=== PATIENT | male | born 1945 | race Caucasian/White ===

== ENCOUNTER 2016-09-14 05:51 | Day surgery (SDC) | payer MEDICARE, OTHER ==
[~2016-09-14] VITALS: Ht 172.7 cm; Wt 77.2 kg
[2016-09-14] VITALS (47 sets, daily range): BP systolic 118–174; BP diastolic 54–81; PULSE 60–88; RESP 11–29; Ht 172.7 cm; Wt 77.2 kg
[~2016-09-14 05:51] MED LIST: ASPI-664; CARV3.1238; CLOP75TA19; LEVO500T72; LISI-523; SMV40T; TAMS-14
[2016-09-14] MEDS ORDERED: IODIXANOL LOCM 100 ML BTL ONE ×2 (06:58→08:11)
[2016-09-14] MEDS ORDERED: LISI10TA2 PO (06:59)
[2016-09-14] MEDS ORDERED: ATEN-51 PO (06:59)
[2016-09-14] MEDS ORDERED: ATOR80TA75 PO (06:59)
[2016-09-14] MEDS ORDERED: IBUP800T25 PO (06:59)
[2016-09-14] MEDS ORDERED: LIDOCAINE 1% (MDV) 20 ML INJ ONE (06:59)
[2016-09-14] MEDS ORDERED: FENTAnyl 50 MCG/ML VIAL ONE ×2 (06:59→08:45)
[2016-09-14] MEDS ORDERED: SOD CHLORIDE 0.9% 500 ML ONE (06:59)
[2016-09-14] MEDS ORDERED: MIDAZOLAM 1 MG/ML 2 ML INJ ONE ×2 (06:59→08:31)
[2016-09-14] MEDS ORDERED: LORA1TAB PO (07:00)
[2016-09-14] MEDS ORDERED: NIT4 SL (07:00)
[2016-09-14] MEDS ORDERED: ZOLP5TAB6 PO (07:00)
[2016-09-14] MEDS ORDERED: NACL 0.9% 3 ML SYG IV SCH ×2 (07:00→14:00)
[2016-09-14] MEDS ORDERED: VERAPAMIL 5 MG INJ ONE (07:00)
[2016-09-14] MEDS ORDERED: NITROGLYCERIN (IC) 100 MCG/ML INJ ONE (07:00)
[2016-09-14] MEDS ORDERED: HEPARIN 1000 UNITS/ML 10 ML INJ ONE (07:00)
[2016-09-14] MEDS ORDERED: TAMS0.4C2 PO (07:00)
[2016-09-14] MEDS ORDERED: ASPIRIN 325 MG TAB ONE (08:28)
[2016-09-14] MEDS ORDERED: CLOPIDOGREL 300 MG TAB ONE (08:28)
[2016-09-14] MEDS ORDERED: hydrALAzine 20 MG INJ ONE (08:49)
[2016-09-14] MEDS ORDERED: SOD CHLORIDE 0.9% 500 ML IV SCH (09:01)
--- NOTE | 2016-09-14 11:13 | OPR ---
DATE OF OPERATION: 09/14/2016 PROCEDURES PERFORMED: 1. Left heart catheterization. 2. ____ balloon angioplasty alone of the mid LAD. PREOPERATIVE DIAGNOSES: 1. Coronary artery disease, status post PCI. 2. History of in-stent restenosis. 3. Previous myocardial infarction. 4. Abnormal cardiac stress test. 5. Cigarette smoker. POSTOPERATIVE DIAGNOSES: 1. Coronary artery disease with recurrent in-stent restenosis of mid LAD stent. 2. Status post successful balloon angioplasty alone of mid LAD stent. SANDBLAST OPERATOR: Tha Murray MD PRIMARY DOORSHAKER: Eugene Campbell MD REFERRING PHYSICIAN: Dr. Nazario HISTORY: Mr. Coello is a pleasant 69-year-old man with a history of previous anterior wall myocar dial infarction, status post percutaneous coronary intervention to the mid LAD in 2007. The patient returned in 2009 with in-stent restenosis of the mid LAD stent status post overlapping stent placem ent with drug-eluting stent. Patient had done well; however, has been followed by Dr. Eugene portillo and some recent stress test showed anterior wall hypokinesis with stress. The patient also with c ontinued smoking; treatment high risk for in-stent restenosis. Decision was made to bring the alexsandra ent to the catheterization lab for further evaluation. The patient was aware of all risks, benefits prior to the procedure. PROCEDURE DESCRIPTION: After informed consent was obtained, right wrist and groin were prepped in u sual sterile fashion and anesthetized with 1% lidocaine solution. Right radial access was obtained using ultrasound guidance and a TIG 4.0 catheter was advanced to the ascending aorta. However, a wi re would not pass the innominate artery and a selective right subclavian angiogram was obtained show ing occlusion of the right subclavian artery after completion just prior to origin of the vertebral and [place] arteries. Decision was made to proceed with femoral access for procedure. TIG catheter an d wires were removed. Right groin was then anesthetized with 1% lidocaine solution and a 6-Lao s allyn was placed using modified Seldinger technique. The right femoral angiogram was obtained showi ng correct sheath placement in the mid right common femoral artery Standard angiograms were then obt ained using JL4 and JR4 catheters to engage the left and right coronary arteries respectively. The JR4 catheter was removed and exchanged for a 6-Lao Joe right catheter, given inability to ca nnulate the right coronary. Standard angiograms were obtained of the right coronary. ____ was then exchanged for a pigtail catheter, was advanced to the left ventricle without difficulty and pressur es were obtained. Discussion was held with patient as well as referring physician. Decision was laurita de leon to proceed with balloon angioplasty alone of the in-stent restenosis segment, given abnormal stre ss test and single vessel disease. PERCUTANEOUS CORONARY INTERVENTION LESION DESCRIPTION: Patient was given Heparin IV. An AC check w as confirmed to be in therapeutic range. The patient was given oral aspirin and Plavix as well. A 6-Lao JL4 catheter was used to engage the left coronary. A 180 cm 0.014 inch Runthrough wire was advanced to the distal LAD without difficulty. An Emerge 2.5 x 12 compliant balloon was then advan kael to the distal LAD and inflated serially in the distal portion of the overlapping stents within t he mid portion of the overlapping stents with serial inflations. This was exchanged for a Euphora 2 .75 x 8 mm noncompliant balloon which was inflated in the distal portion of the stent to stent edge to high pressures as well in the previously placed stents. The balloon was then exchanged for a 3.0 x 12 noncompliant Euphora balloon which was inflated at the stent overlapped segment to high pressu re. The balloon was then removed and repeat angiograms were obtained after IC nitroglycerin given s howing good result with no evidence of complications of dissection, perforation or distal embolizati on. There was INEZ 3 flow at the end of the procedure. The patient was chest pain free. All anthony ters and wires were removed. There were no complications. Hemostasis was obtained from the right r adial with a TR band as well as the right groin using an Angio-Seal 6-Lao VIP device successfully . FINDINGS: HEMODYNAMICS: LVEDP is 18 mmHg. No significant gradient on LV to AO pullback. There does appear t o be a 10 mm gradient of the right radial compared to central aorta pressure. Right subclavian angiogram shows occlusion of right subclavian after origin of the right vertebral a nd [place] arteries. CORONARY ANATOMY: 1. Left main: No significant disease. 2. LAD is a large wrap around vessel. There are mild luminal irregularities in the proximal segmen t. It gives rise to a first diagonal artery which has 30% ostial disease. There is a patent stent in the mid first diagonal artery without significant disease. The mid LAD has a long stent which is without restenosis of getting in the stent. However, in the mid stent there is 40 to 50% restenos is at the overlap. The second stent is also patent with 80% in-stent restenosis in the distal porti on to the edge of the stent. The distal LAD is without significant disease. 3. Left circumflex nondominant artery. It has a large OM1 with mild 20 to 30% disease in the proxi mal segment. INEZ 3 flow. The AV groove circumflex is a small vessel without disease. 4. Right coronary artery is a dominant artery, large in caliber. There is a 30 to 40% stenosis in the proximal segment. The mid RCA has mild luminal irregularities. The distal RCA has mild luminal irregularities. It gives rise to a right posterolateral branch which is large, as well as a right PDA branch which is of average size without significant disease. PERCUTANEOUS CORONARY INTERVENTION LESION DESCRIPTION: 1. In-stent restenosis of the mid LAD stent in the distal portion. Prestenosis 80%, post-stenosis is 0%. Pre-INEZ flow 3, post-PCI flow 3. 2. Status post Hominy balloon angioplasty alone with a 2.75 x 8 mm balloon distally and a 3.0 x 12 m m NC balloon in the mid segment to high pressures with good result. CONCLUSIONS: 1. Recurrent in-stent restenosis of the distal LADs. 2. Successful minimal balloon angioplasty alone to the distal LAD stent. 3. Mildly elevated left ventricular filling pressures. RECOMMENDATIONS: 1. Continue aspirin 81 mg daily. 2. Will continue Plavix given in-stent restenosis. Continue indefinitely at ____ if not tolerated. 3. Continue maximal CAD risk factor modification. 4. Close monitoring ____ outpatient for in-stent restenosis. If recurrent stenosis occurs, should consider alternative options such as brachytherapy versus single vessel bypass. Dictated By: THA JAMES/EDITA Conf#: [id number] DID#: [id number] CC: Randall Nazario MD;*EndCC*
[2016-09-14] MEDS ORDERED: NITROGLYCERIN (SL) 0.4 MG TAB SL PRN (12:00)
[2016-09-14] MEDS ORDERED: ACETAMINOPHEN 325 MG TAB PO PRN (12:30)
--- NOTE | 2016-09-14 13:50 | HP ---
Date/Time of Note Date/Time of Note DATE: 09/14/16 TIME: 13:47 Assessment/Plan VTE Prophylaxis VTE Prophylaxis Intervention: SCD's Lines/Catheters IV Catheter Type (from [facility]): Peripheral IV Assessment/Plan Chief Complaint/Hosp Course Assessment and plan 1. Coronary artery disease. Patient is status post PCI with balloon angioplasty due to restenosis of distal LAD. Continue on antiplatelet therapy. Plan to transfer patient ICU. cardiology is following. Continue postop care 2. History of dyslipidemia. Follow up on fasting panel. We'll resume statin medication 3. Essential hypertension. Continue on antihypertensives and adjust as needed 4. History of BPH. We'll resume patient's Flomax DVT prophylaxis: SCDs Disposition and plan: Tentative plan to transfer the patient ICU. Continue in house monitoring. Discussed plan of care with Dr. Joya Problems: HPI/ROS Admit Date/Time Admit Date/Time Hx of Present Illness This is a 71-year-old male with past medical history of coronary artery disease with previous myocardial infarction with stent to LAD as well as diagonal branch , hypertension, dyslipidemia, BPH, who was brought to [facility] for elective PCI due to recurrent in-stent restenosis of mid LAD stent. Patient did have successful balloon angioplasty of mid LAD stent. He is currently seen in PACU. Vital signs within normal limits. Remains afebrile. Labs pending at present. We will evaluate him for the aforementioned issues. ROS 12 point review of systems obtained and entirely negative except that mentioned in history of present illness PMH/Family/Social Past Medical History myocardial infarction with stent to LAD as well as diagonal branch, hypertension, dyslipidemia, BPH Family History Significant Family History: no pertinent family hx Social History Alcohol Use: none Smoking Status: Current every day smoker (10 cigarettes/day) Drug Use: none Exam/Review of Systems Vital Signs Vitals Vital Signs Date Time Temp Pulse Resp B/P Pulse Ox O2 Delivery O2 Flow Rate FiO2 09/14/16 12:56 78 14 136/67 96 Room Air 09/14/16 09:41 2.0 09/14/16 09:27 98.0 Exam Exam General: No acute signs or symptoms of distress Eyes: pupils equal round, Anicteric sclera Neck: Supple nontender, no JVD Cardiac: S1, S2 auscultated, regular rhythm and rate Pulmonary: No coarse rhonchi or breathing auscultated GI: Abdomen soft nontender nondistended, bowel sounds active Extremities: No edema bilateral lower extremities Skin: Clean dry and intact Neurologic: Alert to person place and time and situation Medications Medications Current Medications Aspirin (Halfprin) 81 mg DAILY PO ; Start 09/15/16 at 09:00 Clopidogrel Bisulfate (plaVIX) 75 mg DAILY PO ; Start 09/15/16 at 09:00 Acetaminophen (Tylenol Tab) 650 mg Q4H PRN PO NON-CARDIAC PAIN LEVEL 1-3 Last administered on 09/14/16t 12:49; Admin Dose 650 MG; Start 09/14/16 at 12:30 Oxycodone/ Acetaminophen (Percocet (5/ 325)) 1 tab Q4H PRN PO REPORTED NON- CARDIAC PAIN 4-7; Start 09/14/16 at 14:00 Al Hydrox/Mg Hydrox/Simethicone (Mag-Al Plus) 30 ml Q4H PRN PO GASTROINTESTINAL UPSET; Start 09/14/16 at 14:00 Ondansetron HCl (Zofran Inj) 4 mg Q4H PRN IV NAUSEA AND/OR VOMITING; Start at 14:00 Famotidine (Pepcid) 20 mg Q12 PO ; Start 09/14/16 at 21:00 Atenolol (Tenormin) 25 mg DAILY PO ; Start 09/15/16 at 09:00 Atorvastatin Calcium (Lipitor) 80 mg DAILY PO ; Start 09/15/16 at 09:00 Lisinopril (Zestril) 10 mg DAILY PO ; Start 09/15/16 at 09:00 Nitroglycerin (Nitroglycerin (Sl Tab) 0.4 Mg) 0.4 tab [id number] PRN SL CHEST PAIN; Start 09/14/16 at 12:00 Tamsulosin HCl (Flomax) 0.4 mg DAILY PO ; Start 09/15/16 at 09:00 SOREN CABA Sep 14, 2016 13:50
[2016-09-14] MEDS ORDERED: ONDANSETRON 4 MG INJ IV PRN ×2 (14:00)
[2016-09-14] MEDS ORDERED: AL HYDROX/MG HYDROX/SIMETH 30 ML CUP PO PRN (14:00)
[2016-09-14] MEDS ORDERED: MAGNESIUM HYDROXIDE 30ML CUP PO PRN (14:00)
[2016-09-14] MEDS ORDERED: HYDROCODONE/APAP (5/325) TAB PO PRN ×2 (14:00)
[2016-09-14] MEDS ORDERED: morphine 2 MG INJ IV PRN (14:00)
[2016-09-14] MEDS ORDERED: OXYCODONE/ACETAMINOPHEN (5/325) TAB PO PRN (14:00)
[2016-09-14] MEDS ORDERED: DOCUSATE SODIUM 100 MG CAP PO PRN (14:00)
[2016-09-14] MEDS ORDERED: ACETAMINOPHEN 650 MG SUPP PR PRN (14:00)
[2016-09-14 16:28] LABS: ALBUMIN 3.5 g/dl (3.3-4.9)
[2016-09-14 16:31] LABS: BILIRUBIN,INDIRECT 0.4 mg/dl (0-1.1); BILIRUBIN,TOTAL 0.4 mg/dl (0.2-1.3)
[2016-09-14 16:32] LABS: ALBUMIN/GLOBULIN RATIO 1.29; TOTAL PROTEIN 6.2 g/dl (6.1-8.1)
[2016-09-14 16:37] LABS: CALCIUM 8.5 mg/dl (8.4-10.2); CREATININE 0.77 mg/dl (0.61-1.24); POTASSIUM 3.7 mmol/L (3.5-5.1)
[2016-09-14] MEDS: FAMOTIDINE 20 MG TAB PO SCH (20:29)
[2016-09-14] MEDS: ZOLPIDEM 5 MG TAB PO PRN ×2 (20:29→21:39)
[2016-09-14] MEDS: ACETAMINOPHEN 325 MG TAB PO PRN (21:39)
[2016-09-15] VITALS (27 sets, daily range): BP systolic 117–171; BP diastolic 55–95; PULSE 59–97; RESP 11–24
[2016-09-15] MEDS: ACETAMINOPHEN 325 MG TAB PO PRN (03:24)
[2016-09-15 04:58] LABS: BASOPHIL # 0.1 10^3/ul (0.0-0.1); BASOPHILS % 0.6 % (0.0-2.0); EOSINOPHILS # 0.2 10^3/ul (0.0-0.5); EOSINOPHILS % 1.3 % (0.0-7.0); HEMATOCRIT 41.7 % (42.0-52.0); HEMOGLOBIN 14.2 g/dl (14.0-18.0); LYMPHOCYTES % 23.9 % (15.0-51.0); MEAN CORPUSCULAR HEMOGLOBIN 31.5 pg (29.0-33.0); MEAN CORPUSCULAR HGB CONC 34.1 g/dl (32.0-37.0); MEAN CORPUSCULAR VOLUME 92.4 fl (82.0-101.0); MEAN PLATELET VOLUME 11.5 fl (7.4-10.4); MONOCYTE # 1.2 10^3/ul (0.3-0.9); MONOCYTES % 9.7 % (0.0-11.0); NEUTROPHIL # 8.1 10^3/ul (1.6-7.5); NEUTROPHILS % 64.5 % (39.0-77.0); PLATELET COUNT 145 10^3/UL (140-440); RED BLOOD COUNT 4.51 10^6/ul (4.70-6.10); RED CELL DISTRIBUTION WIDTH 14.1 % (11.5-14.5); UNCORRECTED WBC 12.6 10^3/ul (4.8-10.8); WHITE BLOOD COUNT 12.6 10^3/ul (4.8-10.8)
[2016-09-15 05:02] LABS: CONDITION 1
[2016-09-15 05:08] LABS: ALBUMIN 3.6 g/dl (3.3-4.9)
[2016-09-15 05:09] LABS: POTASSIUM 3.6 mmol/L (3.5-5.1)
[2016-09-15 05:10] LABS: CHOL/HDL RATIO 2.8 RATIO; MAGNESIUM 1.8 mg/dl (1.7-2.5); PHOSPHORUS 3.7 mg/dl (2.5-4.9)
[2016-09-15 05:11] LABS: ALBUMIN/GLOBULIN RATIO 1.28; BILIRUBIN,INDIRECT 0.7 mg/dl (0-1.1); BILIRUBIN,TOTAL 0.7 mg/dl (0.2-1.3); CREATININE 0.8 mg/dl (0.61-1.24); TOTAL PROTEIN 6.4 g/dl (6.1-8.1)
[2016-09-15 05:12] LABS: CALCIUM 8.3 mg/dl (8.4-10.2)
[2016-09-15 05:28] LABS: T3 UPTAKE 39.4 % (23.5-40.5)
[2016-09-15 05:42] LABS: THYROID STIMULATING HORMONE 4.44 MIU/L (0.465-4.680)
[2016-09-15] MEDS: hydrALAzine 20 MG INJ IV PRN ×2 (06:27→12:06)
--- NOTE | 2016-09-15 08:40 | PDOCDIS ---
Discharge Instructions DIAGNOSIS Discharge Diagnosis: Coronary Artery Disease s/p Balloon Angioplasty CONDITION Patient Condition: Good HOME CARE INSTRUCTIONS: Diet Instructions: Low Fat /CholesterolSpecial Diet: CARDIAC DIET ACTIVITY: Bathing Restrictions: ShowerActivity Restrictions Comment: NO HEAVY LIFTING > 10 LBS X 1 WEEK. KEEP R GROIN AND WRIST CLEAN, SHOWER OK FOLLOW UP/APPOINTMENTS Appointments WITH DR. CHRIS IN 1 WEEK GOLDEN GONZALEZ Sep 15, 2016 08:40
--- NOTE | 2016-09-15 08:51 | CONS ---
Date/Time of Note Date/Time of Note DATE: 09/15/16 TIME: 08:47 Assessment/Plan Assessment/Plan Chief Complaint/Hosp Course Impression: # CAD s/p POBA for LAD ISR # HTN- elevated this am mildly # HLD- on statin # chronic headaches- no change from baseline per pt, no n/v. no neuro deficits Recommendations: - ok to d/c home with follow up in cardiology clinic - cont asa 81mg daily - cont plavix 75 mg daily will send Rx to his pharmacy - cont atenolol/lisinopril - cont statin - tylenol prn for chronic headache, pt to f/u with pcp he states Problems: Consultation Date/Type/Reason Admit Date/Time 09/14/2016 Initial Consult Date Referring Provider: VERNELL DIALLO MD 24 HR Interval Summary Free Text/Dictation no acute events. pt with daily nocturnal headache he states, had recurrent headache. no n/v, no change in vision. no cp, sob. tele reviewed, no events. nsr Detailed Summary Eyes: no complaints ENT: other (headache) Respiratory: no complaints Cardiovascular: no complaints Exam/Review of Systems Vital Signs Vitals Vital Signs Date Time Temp Pulse Resp B/P Pulse Ox O2 Delivery O2 Flow Rate FiO2 09/15/16 07:00 97 14 151/77 98 Room Air 09/15/16 04:00 98.3 09/14/16 09:41 2.0 Intake and Output 09/14/16 09/14/16 09/15/16 15:00 23:00 07:00 Intake Total 1200 ml 700 ml Output Total 1190 ml 780 ml Balance 10 ml -80 ml Exam Constitutional: alert, oriented Psych: no complaints Head: atraumatic, normocephalic Eyes: EOMI, nl conjunctiva, nl lids ENMT: nl nasal mucosa & septum Neck: supple, No jvd Respiratory: clear to auscultation, normal air movement Cardiovascular: nl pulses, regular rate and rhythm, No S3, No S4, No irregular rhythm, No systolic murmur Gastrointestinal: non-tender, soft Musculoskeletal: nl extremities to inspection, nl gait and stance, other (R groin c/d/i no ttp. R radial 2+ pulse normal wave form) Extremities: normal pulses Neurological: INTERACTIVE DESIGNER II-XII intact, nl mental status, nl speech, nl strength Results Result Diagram: 09/15/16 0400 09/15/16 0400 Results 24 hrs Laboratory Tests Test 09/14/16 15:45 09/15/16 04:00 Alanine Aminotransferase (ALT/SGPT) 34 30 Albumin 3.5 3.6 Albumin/Globulin Ratio 1.29 1.28 Alkaline Phosphatase 55 55 Anion Gap 14 15 Aspartate Amino Transf (AST/SGOT) 22 20 Blood Urea Nitrogen 12 12 Calcium Level 8.5 8.3 L Carbon Dioxide Level 25 24 Chloride Level 108 107 Creatinine 0.77 0.80 Direct Bilirubin 0.00 0.00 Globulin 2.70 2.80 Glucose Level 84 81 Indirect Bilirubin 0.4 0.7 Potassium Level 3.7 3.6 Sodium Level 143 142 Total Bilirubin 0.4 0.7 Total Protein 6.2 6.4 Basophils # 0.1 Basophils % 0.6 Blood Morphology Comment Cholesterol Level 91 L Cholesterol/HDL Ratio 2.8 Eosinophils # 0.2 Eosinophils % 1.3 Free Thyroxine Index 3.31 HDL Cholesterol 32 Hematocrit 41.7 L Hemoglobin 14.2 Hemoglobin A1c 5.4 LDL Cholesterol, Calculated 42 Lymphocytes # 3.0 H Lymphocytes % 23.9 Magnesium Level 1.8 Mean Corpuscular Hemoglobin 31.5 Mean Corpuscular Hemoglobin Concent 34.1 Mean Corpuscular Volume 92.4 Mean Platelet Volume 11.5 H Monocytes # 1.2 H Monocytes % 9.7 Neutrophils # 8.1 H Neutrophils % 64.5 Nucleated Red Blood Cells # 0.0 Nucleated Red Blood Cells % 0.0 Phosphorus Level 3.7 Platelet Count 145 Red Blood Count 4.51 L Red Cell Distribution Width 14.1 Thyroid Stimulating Hormone (TSH) 4.440 Thyroxine (T4) 8.4 Triglycerides Level 85 Triiodothyronine (T3) Uptake 39.4 White Blood Count 12.6 H Medications Medications Current Medications Aspirin (Halfprin) 81 mg DAILY PO ; Start 09/15/16 at 09:00 Clopidogrel Bisulfate (plaVIX) 75 mg DAILY PO ; Start 09/15/16 at 09:00 Oxycodone/ Acetaminophen (Percocet (5/ 325)) 1 tab Q4H PRN PO REPORTED NON- CARDIAC PAIN 4-7; Start 09/14/16 at 14:00 Al Hydrox/Mg Hydrox/Simethicone (Mag-Al Plus) 30 ml Q4H PRN PO GASTROINTESTINAL UPSET; Start 09/14/16 at 14:00 Famotidine (Pepcid) 20 mg Q12 PO Last administered on 09/14/16 20:29; Admin Dose 20 MG; Start 09/14/16 at 21:00 Atenolol (Tenormin) 25 mg DAILY PO ; Start 09/15/16 at 09:00 Atorvastatin Calcium (Lipitor) 80 mg DAILY PO ; Start 09/15/16 at 09:00 Lisinopril (Zestril) 10 mg DAILY PO ; Start 09/15/16 at 09:00 Nitroglycerin (Nitroglycerin (Sl Tab) 0.4 Mg) 0.4 tab [id number] PRN SL CHEST PAIN; Start 09/14/16 at 12:00 Tamsulosin HCl (Flomax) 0.4 mg DAILY PO ; Start 09/15/16 at 09:00 Ondansetron HCl (Zofran Inj) 4 mg Q6H PRN IV NAUSEA AND/OR VOMITING; Start at 14:00 Acetaminophen (Tylenol Tab) 650 mg Q6H PRN PO PAIN LEVEL 1-3 OR FEVER Last administered on 09/15/16 03:24; Admin Dose 650 MG; Start 09/14/16 at 14:00 Acetaminophen (Tylenol Supp) 650 mg Q6H PRN TN PAIN LEVEL 1-3 OR FEVER; Start 09/14/16 at 14:00 Acetaminophen/ Hydrocodone Bitart ([place] (5/325)) 1 tab Q6H PRN PO MODERATE PAIN LEVEL 4-6; Start 09/14/16 at 14:00 Acetaminophen/ Hydrocodone Bitart ([place] (5/325)) 2 tab Q6H PRN PO SEVERE PAIN LEVEL 7-10; Start 09/14/16 at 14:00 Morphine Sulfate (morphine) 2 mg Q4H PRN IV SEVERE PAIN LEVEL 7-10 Last administered on 09/15/16 06:02; Admin Dose 2 MG; Start 09/14/16 at 14:00 Docusate Sodium (Colace) 100 mg Q12H PRN PO CONSTIPATION; Start 09/14/16 at 14: 00 Magnesium Hydroxide (Milk Of Mag) 30 ml DAILY PRN PO CONSTIPATION; Start at 14:00 Hydralazine HCl (Apresoline) 10 mg Q6H PRN IV SBP >160 Last administered on t 06:27; Admin Dose 10 MG; Start 09/15/16 at 06:20 Acetaminophen (Tylenol Tab) 650 mg ONCE ONCE PO ; Start 09/15/16 at 09:00; Stop 09/15/16 at 09:01 GOLDEN GONZALEZ Sep 15, 2016 08:51
[2016-09-15] MEDS ORDERED: TAMSULOSIN (SR) 0.4 MG CAP PO SCH (09:00)
[2016-09-15] MEDS ORDERED: LISINOPRIL 10 MG TAB PO SCH (09:00)
[2016-09-15] MEDS ORDERED: ATENOLOL 25 MG TAB PO SCH (09:00)
[2016-09-15] MEDS ORDERED: ACETAMINOPHEN 325 MG TAB PO ONE (09:00)
[2016-09-15] MEDS ORDERED: ATORVASTATIN 80 MG TAB PO SCH (09:00)
[2016-09-15] MEDS ORDERED: CLOPIDOGREL 75 MG TAB PO SCH (09:00)
[2016-09-15] MEDS ORDERED: ASPIRIN (EC) 81 MG TAB PO SCH (09:00)
[2016-09-15] MEDS: FAMOTIDINE 20 MG TAB PO SCH (09:34)
[2016-09-15] MEDS ORDERED: LISI10TA2 PO (10:11)
[2016-09-15] MEDS ORDERED: ASPI-664 PO (10:11)
[2016-09-15] MEDS ORDERED: ATEN-51 PO (10:11)
--- NOTE | 2016-09-15 10:21 | PN ---
Date/Time of Note Date/Time of Note DATE: 09/15/16 TIME: 10:17 Assessment/Plan VTE Prophylaxis VTE Prophylaxis Intervention: SCD's Lines/Catheters IV [facility] [place] Urinary Cath still in place: No Assessment/Plan Chief Complaint/Hosp Course Assessment and plan 1. Coronary artery disease. Patient is status post PCI with balloon angioplasty due to restenosis of distal LAD. Continue on antiplatelet therapy. Plan to transfer patient ICU. cardiology is following. 2. History of dyslipidemia. Follow up on fasting panel. We'll resume statin medication 3. Essential hypertension. Continue on antihypertensives and adjust as needed 4. History of BPH. We'll resume patient's Flomax DVT prophylaxis: SCDs Disposition and plan: no chest pain. appears comfortable. discharge planning Discussed plan of care with Dr. Joya Problems: Subjective 24 Hr Interval Summary Free Text/Dictation resting at this time. comfortable at present. Exam/Review of Systems Vital Signs Vitals Vital Signs Date Time Temp Pulse Resp B/P Pulse Ox O2 Delivery O2 Flow Rate FiO2 09/15/16 09:30 85 22 154/70 97 Room Air 09/15/16 08:00 98.4 09/14/16 09:41 2.0 Intake and Output 09/14/16 09/14/16 09/15/16 15:00 23:00 07:00 Intake Total 1200 ml 700 ml Output Total 1190 ml 780 ml Balance 10 ml -80 ml Exam General: No acute signs or symptoms of distress Eyes: pupils equal round, Anicteric sclera Neck: Supple nontender, no JVD Cardiac: S1, S2 auscultated, regular rhythm and rate Pulmonary: No coarse rhonchi or breathing auscultated GI: Abdomen soft nontender nondistended, bowel sounds active Extremities: No edema bilateral lower extremities Skin: Clean dry and intact Neurologic: Alert to person place and time and situation Results Result Diagram: 09/15/16 0400 09/15/16 0400 Results 24 hrs Laboratory Tests Test 09/14/16 15:45 09/15/16 04:00 Alanine Aminotransferase (ALT/SGPT) 34 30 Albumin 3.5 3.6 Albumin/Globulin Ratio 1.29 1.28 Alkaline Phosphatase 55 55 Anion Gap 14 15 Aspartate Amino Transf (AST/SGOT) 22 20 Blood Urea Nitrogen 12 12 Calcium Level 8.5 8.3 L Carbon Dioxide Level 25 24 Chloride Level 108 107 Creatinine 0.77 0.80 Direct Bilirubin 0.00 0.00 Globulin 2.70 2.80 Glucose Level 84 81 Indirect Bilirubin 0.4 0.7 Potassium Level 3.7 3.6 Sodium Level 143 142 Total Bilirubin 0.4 0.7 Total Protein 6.2 6.4 Basophils # 0.1 Basophils % 0.6 Blood Morphology Comment Cholesterol Level 91 L Cholesterol/HDL Ratio 2.8 Eosinophils # 0.2 Eosinophils % 1.3 Free Thyroxine Index 3.31 HDL Cholesterol 32 Hematocrit 41.7 L Hemoglobin 14.2 Hemoglobin A1c 5.4 LDL Cholesterol, Calculated 42 Lymphocytes # 3.0 H Lymphocytes % 23.9 Magnesium Level 1.8 Mean Corpuscular Hemoglobin 31.5 Mean Corpuscular Hemoglobin Concent 34.1 Mean Corpuscular Volume 92.4 Mean Platelet Volume 11.5 H Monocytes # 1.2 H Monocytes % 9.7 Neutrophils # 8.1 H Neutrophils % 64.5 Nucleated Red Blood Cells # 0.0 Nucleated Red Blood Cells % 0.0 Phosphorus Level 3.7 Platelet Count 145 Red Blood Count 4.51 L Red Cell Distribution Width 14.1 Thyroid Stimulating Hormone (TSH) 4.440 Thyroxine (T4) 8.4 Triglycerides Level 85 Triiodothyronine (T3) Uptake 39.4 White Blood Count 12.6 H Medications Medications Current Medications Aspirin (Halfprin) 81 mg DAILY PO Last administered on 09/15/16 09:34; Admin Dose 81 MG; Start 09/15/16 at 09:00 Clopidogrel Bisulfate (plaVIX) 75 mg DAILY PO Last administered on 09/15/16 09 :35; Admin Dose 75 MG; Start 09/15/16 at 09:00 Oxycodone/ Acetaminophen (Percocet (5/ 325)) 1 tab Q4H PRN PO REPORTED NON- CARDIAC PAIN 4-7; Start 09/14/16 at 14:00 Al Hydrox/Mg Hydrox/Simethicone (Mag-Al Plus) 30 ml Q4H PRN PO GASTROINTESTINAL UPSET; Start 09/14/16 at 14:00 Famotidine (Pepcid) 20 mg Q12 PO Last administered on 09/15/16 09:34; Admin Dose 20 MG; Start 09/14/16 at 21:00 Atenolol (Tenormin) 25 mg DAILY PO Last administered on 09/15/16 09:37; Admin Dose 25 MG; Start 09/15/16 at 09:00 Atorvastatin Calcium (Lipitor) 80 mg DAILY PO Last administered on 09/15/16 09 :34; Admin Dose 80 MG; Start 09/15/16 at 09:00 Lisinopril (Zestril) 10 mg DAILY PO Last administered on 09/15/16 09:35; Admin Dose 10 MG; Start 09/15/16 at 09:00 Nitroglycerin (Nitroglycerin (Sl Tab) 0.4 Mg) 0.4 tab [id number] PRN SL CHEST PAIN; Start 09/14/16 at 12:00 Tamsulosin HCl (Flomax) 0.4 mg DAILY PO Last administered on 09/15/16 09:34; Admin Dose 0.4 MG; Start 09/15/16 at 09:00 Ondansetron HCl (Zofran Inj) 4 mg Q6H PRN IV NAUSEA AND/OR VOMITING; Start at 14:00 Acetaminophen (Tylenol Tab) 650 mg Q6H PRN PO PAIN LEVEL 1-3 OR FEVER Last administered on 09/15/16 03:24; Admin Dose 650 MG; Start 09/14/16 at 14:00 Acetaminophen (Tylenol Supp) 650 mg Q6H PRN OR PAIN LEVEL 1-3 OR FEVER; Start 09/14/16 at 14:00 Acetaminophen/ Hydrocodone Bitart ([place] (5/325)) 1 tab Q6H PRN PO MODERATE PAIN LEVEL 4-6; Start 09/14/16 at 14:00 Acetaminophen/ Hydrocodone Bitart ([place] (5/325)) 2 tab Q6H PRN PO SEVERE PAIN LEVEL 7-10; Start 09/14/16 at 14:00 Morphine Sulfate (morphine) 2 mg Q4H PRN IV SEVERE PAIN LEVEL 7-10 Last administered on 09/15/16 06:02; Admin Dose 2 MG; Start 09/14/16 at 14:00 Docusate Sodium (Colace) 100 mg Q12H PRN PO CONSTIPATION; Start 09/14/16 at 14: 00 Magnesium Hydroxide (Milk Of Mag) 30 ml DAILY PRN PO CONSTIPATION; Start at 14:00 Hydralazine HCl (Apresoline) 10 mg Q6H PRN IV SBP >160 Last administered on t 06:27; Admin Dose 10 MG; Start 09/15/16 at 06:20 SOREN CABA Sep 15, 2016 10:21
--- NOTE | 2016-09-15 14:49 | RADRPT ---
Vent Rate: 62 bpm RR Interval: 0 msec MS Interval: 154 msec QRS Duration: 96 msec QT Interval: 438 msec QTC Interval: 444 msec P-R-T [place]: 64 - -36 - 59 degrees Normal sinus rhythm Left axis deviation Septal infarct , age undetermined Abnormal ECG Electronically Signed By: Dawson Guevara [id number]
--- NOTE | 2016-09-15 14:49 | RADRPT ---
Vent Rate: 65 bpm RR Interval: 0 msec GA Interval: 164 msec QRS Duration: 86 msec QT Interval: 430 msec QTC Interval: 447 msec P-R-T [place]: 64 - -52 - 33 degrees Normal sinus rhythm Left anterior fascicular block Nonspecific T wave abnormality Abnormal ECG Electronically Signed By: Dawson Guevara [id number]
--- NOTE | 2016-09-15 14:49 | RADRPT ---
Vent Rate: 70 bpm RR Interval: 0 msec [place] Interval: 154 msec QRS Duration: 88 msec QT Interval: 412 msec QTC Interval: 444 msec P-R-T [place]: 66 - -58 - 68 degrees Normal sinus rhythm Left anterior fascicular block Abnormal ECG Electronically Signed By: Dawson Guevara [id number]
== END 2016-09-15 14:30 | disposition home or self-care (01) ==
LOC: SDS 05:51 → ICU 20:55 → SDS 09-15 14:30
PROVIDERS: ATTEND Internal Medicine Interventional Cardiology
DX: I25.10 Atherosclerotic heart disease of native coronary artery without angina pectoris (principal); I25.2 Old myocardial infarction; R94.39 Abnormal result of other cardiovascular function study; R51 Headache; I10 Essential (primary) hypertension; F17.200 Nicotine dependence, unspecified, uncomplicated; E78.5 Hyperlipidemia, unspecified; N40.0 Benign prostatic hyperplasia without lower urinary tract symptoms
CPT/HCPCS: 80053; 80061; 83036; 83735; 84100; 84436; 84443; 84479; 85025; 87081; 92920; 93005; 93458; C1725; C1760; C1769; C1887; C1894; J0360; J1644; J2250; J2270; J3010; J7040; Q9967

== ENCOUNTER 2016-10-19 17:55 | Observation (INO) | payer MEDICARE, OTHER ==
[~2016-10-19] VITALS: Ht 167.6 cm; Wt 66.6 kg
[~2016-10-19 17:55] MED LIST changes: -ASPI-664; +ASPI-664 PO; +ATEN-51 PO; +ATOR80TA75 PO; -CARV3.1238; -CLOP75TA19; +IBUP800T25 PO; -LEVO500T72; -LISI-523; +LISI10TA2 PO; +LORA1TAB PO; +NIT4 SL; -TAMS-14; +TAMS0.4C2 PO; +ZOLP5TAB6 PO
--- NOTE | 2016-10-19 18:23 | ERA ---
ER Documentation Chief Complaint Date/Time DATE: 10/19/16 TIME: 18:00 Chief Complaint Chest pressure HPI The patient is a 71-year-old male, presenting with acute sternal chest pressure with dyspnea that began about 12 PM. He has similar symptoms previously, denies chest with exertion or vomiting or diaphoresis or radiation. He was treated with aspirin 162 mg p.o. and 1 spray of nitroglycerin by EMS with good response. He denies fever, chills, neck pain, abdominal pain, vomiting, dysuria , diarrhea. He denies smoking or drinking Past medical history: CAD, hypertension, dyslipidemia, BPH, hepatitis C Past surgical history: 2 stent PCI ROS All systems reviewed and are negative except as per history of present illness. Medications Home Meds Active Scripts Aspirin* (Aspirin* EC) 81 Mg Tablet.dr, 81 MG PO DAILY for 30 Days Prov:SOREN CABA 09/15/16 Atenolol* (Atenolol*) 25 Mg Tablet, 25 MG PO DAILY, #30 Prov:SOREN CABA 09/15/16 Lisinopril* (Lisinopril*) 10 Mg Tablet, 10 MG PO DAILY, #30 Prov:SOREN CABA 09/15/16 Reported Medications Clopidogrel Bisulfate* (Clopidogrel Bisulfate*) 75 Mg Tablet, 75 MG PO DAILY, # 30 TAB 10/19/16 Nitroglycerin* (Nitrostat*) 0.4 Mg Tab.subl, 0.4 MG SL Q5MIN Y for CHEST PAIN, BOTTLE 09/14/16 Zolpidem Tartrate* (Zolpidem Tartrate*) 5 Mg Tablet, 5 MG PO QHS Y for INSOMNIA , #30 09/14/16 Tamsulosin Hcl* (Tamsulosin Hcl*) 0.4 Mg Cap.er.24h, 0.4 MG PO DAILY, #30 09/14/16 Lorazepam* (Lorazepam*) 1 Mg Tablet, 1 MG PO DAILY, #30 09/14/16 Atorvastatin* (Atorvastatin*) 80 Mg Tablet, 80 MG PO DAILY, #30 09/14/16 Discontinued Reported Medications Ibuprofen* (Ibuprofen*) 800 Mg Tablet, 800 MG PO BID, #60 09/14/16 Simvastatin (Simvastatin) 40 Mg Tablet 08/04/10 Allergies Allergies: Coded Allergies: No Known Allergies (Verified Allergy, Mild, 10/19/16) PMhx/Soc History of Surgery: Yes (Prostatectomy) Anesthesia Reaction: No Hx Neurological Disorder: No Hx Respiratory Disorders: No Hx Cardiac Disorders: Yes (CAD, HTN, HDL , NON Q WAVE AK) Hx Psychiatric Problems: No Hx Miscellaneous Medical Probl: No Hx Alcohol Use: No Hx Substance Use: No Hx Tobacco Use: Yes Physical Exam Vitals Vital Signs Date Time Temp Pulse Resp B/P Pulse Ox O2 Delivery O2 Flow Rate FiO2 10/19/16 18:19 59 18 184/91 99 Room Air 10/19/16 17:58 98.6 63 18 187/88 98 Physical Exam Const: No acute distress. Head: Atraumatic. Eyes: Normal Conjunctiva. ENT: Normal External Ears, Nose and Mouth. Neck: Full range of motion. No meningismus. Resp: Clear to auscultation bilaterally. Cardio: Regular rate and rhythm, no murmurs. Abd: Soft, non distended, normal bowel sounds, non tender. Skin: No petechiae or rashes. Back: No midline or flank tenderness. Ext: No cyanosis, or edema. Neur: Awake and alert. No focal deficit Psych: Normal Mood and Affect. Result Diagram: 10/19/16 1805 10/19/16 180 Results 24 hrs Laboratory Tests Test 10/19/16 18:05 Activated Partial Thromboplast Time 28.6Sec Anion Gap 19 B-Type Natriuretic Peptide 281PG/ML Basophils # 0.110^3/ul Basophils % 0.6% Blood Urea Nitrogen 10mg/dl Calcium Level 9.0mg/dl Carbon Dioxide Level 26mmol/L Chloride Level 102mmol/L Creatinine 0.87mg/dl Eosinophils # 0.210^3/ul Eosinophils % 2.1% Glucose Level 101mg/dl Hematocrit 44.2% Hemoglobin 15.3g/dl INR International Normalized Ratio 0.97 Lymphocytes # 3.710^3/ul Lymphocytes % 37.5% Mean Corpuscular Hemoglobin 31.5pg Mean Corpuscular Hemoglobin Concent 34.6g/dl Mean Corpuscular Volume 91.1fl Mean Platelet Volume 11.9fl Monocytes # 0.810^3/ul Monocytes % 8.0% Neutrophils # 5.110^3/ul Neutrophils % 51.5% Nucleated Red Blood Cells # 0.010^3/ul Nucleated Red Blood Cells % 0.0/100WBC Platelet Count 35320^3/UL Potassium Level 4.3mmol/L Prothrombin Time 12.9Sec Prothrombin Time Ratio 1.0 Red Blood Count 4.8510^6/ul Red Cell Distribution Width 12.4% Sodium Level 143mmol/L Troponin I < 0.012ng/ml White Blood Count 9.910^3/ul Procedures/[place] [id number] Radiology Main Line: [phone] DIAGNOSTIC IMAGING REPORT Patient: MELISSA DOMINGO : 1945 Age: 71 Sex: M MR #: [id number] DOS: 10/19/16 1759 Ordering MD: ALFONSO QUINTERO MD Location: E/R Room/Bed: PROCEDURE: XR Chest. CLINICAL INDICATION: Chest pain TECHNIQUE: A single portable view of the chest was obtained. COMPARISON: None FINDINGS: The aorta is tortuous and atherosclerotic. The cardiomediastinal silhouette is otherwise within normal limits. The lungs and pleural spaces are clear. The soft tissues and osseous structures demonstrate benign age related senescent changes. IMPRESSION: No acute cardiopulmonary disease. RPTAT: HPNM Physician Theresa Date Time Electronically viewed and signed by Physician Theresa on 10/19/2016 18 :54 / CC: ALFONSO QUINTERO MD EKG: Read by emergency physician Rate/Rhythm: Normal Sinus Rhythm 60 beats/min QRS, ST, T-waves: No ST elevation, no T inversion, septal Q waves Impression: Abnormal EKG MEDICAL MAKING DECISION: The patient is a 71-year-old male, with multiple cardiac risk factors, presenting with acute chest pain, concerning for ACS. He was treated with 1 inch nitroglycerin ointment with good response. The differential diagnoses considered include but are not limited to acute coronary syndrome, acute myocardial infarction, pericarditis, pulmonary embolism, aortic dissection, pneumonia, pleural effusion, pneumothorax, GERD, chest wall pain. Departure Diagnosis: Primary Impression: Chest pain Condition: Stable Comments I discussed the findings with the patient. I discussed the patient with the on- call hospitalist Dr. Fontaine who was made aware of the lab, the treatment, the patient condition. The patient is admitted to telemetry at 7:30 PM ALFONSO QUINTERO MD Oct 19, 2016 18:23
[2016-10-19 18:25] LABS: ADD SCAN DIFF NO
[2016-10-19 18:27] LABS: BASOPHIL # 0.1 10^3/ul (0.0-0.1); BASOPHILS % 0.6 % (0.0-2.0); EOSINOPHILS # 0.2 10^3/ul (0.0-0.5); EOSINOPHILS % 2.1 % (0.0-7.0); HEMATOCRIT 44.2 % (42.0-52.0); HEMOGLOBIN 15.3 g/dl (14.0-18.0); LYMPHOCYTES # 3.7 10^3/ul (0.8-2.9); LYMPHOCYTES % 37.5 % (15.0-51.0); MEAN CORPUSCULAR HEMOGLOBIN 31.5 pg (29.0-33.0); MEAN CORPUSCULAR HGB CONC 34.6 g/dl (32.0-37.0); MEAN CORPUSCULAR VOLUME 91.1 fl (82.0-101.0); MEAN PLATELET VOLUME 11.9 fl (7.4-10.4); MONOCYTE # 0.8 10^3/ul (0.3-0.9); NEUTROPHIL # 5.1 10^3/ul (1.6-7.5); NEUTROPHILS % 51.5 % (39.0-77.0); PLATELET COUNT 159 10^3/UL (140-415); RED BLOOD COUNT 4.85 10^6/ul (4.70-6.10); RED CELL DISTRIBUTION WIDTH 12.4 % (11.5-14.5); WHITE BLOOD COUNT 9.9 10^3/ul (4.8-10.8)
[2016-10-19 18:36] LABS: CHLORIDE 102 mmol/L (97-110); POTASSIUM 4.3 mmol/L (3.5-5.1); SODIUM 143 mmol/L (135-144)
[2016-10-19 18:37] LABS: INR 0.97; PROTIME 12.9 Sec (12.2-14.2)
[2016-10-19 18:38] LABS: CREATININE 0.87 mg/dl (0.61-1.24); PARTIAL THROMBOPLASTIN TIME 28.6 Sec (25.0-35.0)
[2016-10-19 18:39] LABS: ANION GAP 19 (8-16); BLOOD UREA NITROGEN 10 mg/dl (7-20); CARBON DIOXIDE 26 mmol/L (21-31); GLUCOSE 101 mg/dl (70-220)
[2016-10-19 18:52] LABS: TROPONIN-I < 0.012 ng/ml (0.00-0.12)
--- NOTE | 2016-10-19 18:55 | RADRPT ---
PROCEDURE: XR Chest. CLINICAL INDICATION: Chest pain TECHNIQUE: A single portable view of the chest was obtained. COMPARISON: None FINDINGS: The aorta is tortuous and atherosclerotic. The cardiomediastinal silhouette is otherwise within nor mal limits. The lungs and pleural spaces are clear. The soft tissues and osseous structures demons trate benign age related senescent changes. IMPRESSION: No acute cardiopulmonary disease. RPTAT: HPNM Physician Theresa Date Time Electronically viewed and signed by Jose M Casey Physician on 10/19/2016 18:54 /
[2016-10-19] MEDS ORDERED: CLOP75TA4 PO (18:56)
[2016-10-19 21:10] VITALS: BP 146/67; PULSE 54; RESP 18
[2016-10-19 21:58] VITALS: PULSE 53
[2016-10-19] MEDS ORDERED: ACETAMINOPHEN 325 MG TAB PO PRN (22:00)
[2016-10-19] MEDS ORDERED: ZOLPIDEM 5 MG TAB PO PRN (22:00)
[2016-10-19] MEDS ORDERED: NITROGLYCERIN (SL) 0.4 MG TAB SL PRN (22:00)
[2016-10-19] MEDS ORDERED: ONDANSETRON 4 MG INJ IV PRN (22:00)
[2016-10-19] MEDS ORDERED: morphine 2 MG INJ IV PRN (22:00)
[2016-10-19] MEDS: TAMSULOSIN (SR) 0.4 MG CAP PO SCH (22:49)
[2016-10-19 22:58] VITALS: Ht 167.6 cm; Wt 66.6 kg
[2016-10-20] VITALS (12 sets, daily range): BP systolic 121–153; BP diastolic 59–75; PULSE 48–73; RESP 16–18
[2016-10-20 00:03] LABS: CREATINE KINASE 78 IU/L (23-200)
[2016-10-20 00:16] LABS: CK-MB 0.35 ng/ml (0.0-2.4); TROPONIN-I < 0.012 ng/ml (0.00-0.12)
--- NOTE | 2016-10-20 06:44 | HP ---
Date/Time of Note Date/Time of Note DATE: 10/20/16 TIME: 06:26 Assessment/Plan VTE Prophylaxis VTE Prophylaxis Intervention: SCD's Lines/Catheters IV Catheter Type (from Nrsg): Saline Lock Assessment/Plan Assessment/Plan 1. Chest Pain: rule-out ACS: EKG with no ST-T wave abnormalities - Oxygen, statin,, ACEI, and PRN NTG & morphine. Will resume home atenolol when HR improves - Will trend trop and notify Dr. Murray, applications intern 2. Hypertension: BP not at goal - cont meds and adjust as needed 3. Dyslipidemia: cont statin 4. BPH: cont meds HPI/ROS Admit Date/Time Admit Date/Time Oct 19, 2016 at 19:31 Hx of Present Illness This is a 71-year-old male with past medical history of coronary artery disease with previous myocardial infarction with stent to LAD as well as diagonal branch , hypertension, dyslipidemia, BPH who presented to [facility] complaining of chest pain. Pt was brought to [facility] for elective PCI last month due to recurrent in-stent restenosis of mid LAD stent. Patient did have successful balloon angioplasty of mid LAD stent by Dr. Murray and was discharged in stable condition. His chest pain started today and is substernal with no radiation. He reported associated SOB. Denied N/V or diaphoresis. He was treated with aspirin 162 mg. and 1 spray of nitroglycerin by EMS with good response. ER Course: Initial BP 184/91 with HR of 60, but he remained bradycardic with HR in 50s the rest of ER stay. First trop neg and EKG with no ST-T wave abnormalities. . PMH/Family/Social Past Medical History Medical History: coronary artery disease, high cholesterol, hypertension, other (BPH) Past Surgical History Past Surgical Hx: other (ardiac stent) Social History Alcohol Use: occasionally Smoking Status: Former smoker Drug Use: none Exam/Review of Systems Vital Signs Vitals Vital Signs Date Time Temp Pulse Resp B/P Pulse Ox O2 Delivery O2 Flow Rate FiO2 10/20/16 04:55 98.3 53 16 124/59 97 10/19/16 21:10 Room Air Exam Constitutional: alert, oriented, well developed Head: atraumatic, normocephalic Eyes: EOMI, PERRL Neck: non-tender, supple Respiratory: clear to auscultation, normal air movement Cardiovascular: other (carmen with regular rhythm) Gastrointestinal: non-tender, soft Extremities: normal pulses Labs Result Diagram: 10/19/16180410/19/161804 Medications Medications Current Medications Aspirin (Halfprin) 81 mg DAILY PO ; Start 10/20/16 at 09:00 Atenolol (Tenormin) 25 mg DAILY PO ; Start 10/20/16 at 09:00 Atorvastatin Calcium (Lipitor) 80 mg DAILY PO ; Start 10/20/16 at 09:00 Clopidogrel Bisulfate (plaVIX) 75 mg DAILY PO ; Start 10/20/16 at 09:00 Lisinopril (Zestril) 10 mg DAILY PO ; Start 10/20/16 at 09:00 Lorazepam (Ativan) 1 mg DAILY PO ; Start 10/20/16 at 09:00 Nitroglycerin (Nitroglycerin (Sl Tab) 0.4 Mg) 1 tab [id number] PRN SL CHEST PAIN ; Start 10/19/16 at 22:00 Tamsulosin HCl (Flomax) 0.4 mg QHS PO Last administered on 10/19/16t 22:49; Admin Dose 0.4 MG; Start 10/19/16 at 22:36 Zolpidem Tartrate (Ambien) 5 mg QHS PRN PO INSOMNIA; Start 10/19/16 at 22:00 Acetaminophen (Tylenol Tab) 650 mg Q6H PRN PO PAIN AND OR ELEVATED TEMP; Start 10/19/16 at 22:00 Ondansetron HCl (Zofran Inj) 4 mg Q4H PRN IV NAUSEA AND/OR VOMITING; Start at 22:00 Morphine Sulfate (morphine) 2 mg Q6 PRN IV PAIN; Start 10/19/16 at 22:00 KAL CHEATHAM MD Oct 20, 2016 06:36
[2016-10-20 08:13] LABS: ADD SCAN DIFF NO
[2016-10-20 08:32] LABS: ALBUMIN 3.4 g/dl (3.3-4.9)
[2016-10-20 08:33] LABS: CREATINE KINASE 93 IU/L (23-200); POTASSIUM 3.9 mmol/L (3.5-5.1)
[2016-10-20 08:35] LABS: ALBUMIN/GLOBULIN RATIO 1.03; BILIRUBIN,INDIRECT 0.5 mg/dl (0-1.1); BILIRUBIN,TOTAL 0.5 mg/dl (0.2-1.3); CALCIUM 8.7 mg/dl (8.4-10.2); CREATININE 0.86 mg/dl (0.61-1.24); TOTAL PROTEIN 6.7 g/dl (6.1-8.1)
[2016-10-20 08:36] LABS: CHOL/HDL RATIO 2.1 RATIO
[2016-10-20 08:39] LABS: BASOPHIL # 0.1 10^3/ul (0.0-0.1); BASOPHILS % 0.6 % (0.0-2.0); EOSINOPHILS # 0.2 10^3/ul (0.0-0.5); EOSINOPHILS % 2.5 % (0.0-7.0); HEMATOCRIT 41.1 % (42.0-52.0); HEMOGLOBIN 14.2 g/dl (14.0-18.0); LYMPHOCYTES # 2.9 10^3/ul (0.8-2.9); LYMPHOCYTES % 30.3 % (15.0-51.0); MEAN CORPUSCULAR HEMOGLOBIN 31.2 pg (29.0-33.0); MEAN CORPUSCULAR HGB CONC 34.5 g/dl (32.0-37.0); MEAN CORPUSCULAR VOLUME 90.3 fl (82.0-101.0); MEAN PLATELET VOLUME 12.6 fl (7.4-10.4); MONOCYTE # 0.9 10^3/ul (0.3-0.9); MONOCYTES % 9.6 % (0.0-11.0); NEUTROPHIL # 5.4 10^3/ul (1.6-7.5); NEUTROPHILS % 56.7 % (39.0-77.0); PLATELET COUNT 155 10^3/UL (140-415); RED BLOOD COUNT 4.55 10^6/ul (4.70-6.10); RED CELL DISTRIBUTION WIDTH 12.5 % (11.5-14.5); WHITE BLOOD COUNT 9.5 10^3/ul (4.8-10.8)
[2016-10-20 08:46] LABS: CK-MB 0.38 ng/ml (0.0-2.4); TROPONIN-I < 0.012 ng/ml (0.00-0.12)
[2016-10-20 09:31] LABS: THYROID STIMULATING HORMONE 2.62 MIU/L (0.465-4.680)
[2016-10-20] MEDS: CLOPIDOGREL 75 MG TAB PO SCH (10:51)
[2016-10-20] MEDS: ATORVASTATIN 80 MG TAB PO SCH (10:51)
[2016-10-20] MEDS: LORAZEPAM 1 MG TAB PO SCH (10:51)
[2016-10-20] MEDS: ATENOLOL 25 MG TAB PO SCH (10:51)
[2016-10-20] MEDS: ASPIRIN (EC) 81 MG TAB PO SCH (10:51)
[2016-10-20] MEDS: LISINOPRIL 10 MG TAB PO SCH (10:52)
--- NOTE | 2016-10-20 13:39 | PN ---
Date/Time of Note Date/Time of Note DATE: 10/20/16 TIME: 13:32 Assessment/Plan VTE Prophylaxis VTE Prophylaxis Intervention: SCD's Lines/Catheters IV Catheter Type (from Nrsg): Saline Lock Assessment/Plan Assessment/Plan 1. Chest Pain, follow up with cardiology Dr. Murray 2. CAD, s/p PCI/stent, on treatment 3. Hypertension: controlled 4. Dyslipidemia: cont statin 5. BPH: cont meds Subjective 24 Hr Interval Summary Free Text/Dictation no chest pain or shortness of breath today Exam/Review of Systems Vital Signs Vitals Vital Signs Date Time Temp Pulse Resp B/P Pulse Ox O2 Delivery O2 Flow Rate FiO2 10/20/16 12:32 73 10/20/16 04:55 98.3 16 124/59 97 10/19/16 21:10 Room Air Intake and Output 10/19/16 10/19/16 10/20/16 15:00 23:00 07:00 Intake Total 400 ml Balance 400 ml Exam Constitutional: alert, oriented, well developed Psych: nl mood/affect, no complaints Head: atraumatic, normocephalic Eyes: EOMI, PERRL, nl conjunctiva, nl lids ENMT: nl external ears & nose, nl lips & teeth, nl nasal mucosa & septum Neck: non-tender, supple Respiratory: clear to auscultation, normal air movement, No congested cough, No crackles/rales, No diminished breath sounds, No intercostal retraction, No labored breathing, No other, No respirations, No tactile fremitus, No wheezing Cardiovascular: nl pulses, regular rate and rhythm, No S3, No S4, No bruits, No diastolic murmur, No edema, No gallop, No irregular rhythm, No jugular venous distention (JVD), No murmurs/extra sounds, No other, No rub, No systolic murmur Gastrointestinal: nl liver, spleen, non-tender, soft, No ascites, No bowel sounds, No distended, No firm, No hepatomegaly, No mass , No other, No rebound or guarding, No splenomegaly, No surgical scars, No tender Musculoskeletal: nl extremities to inspection Extremities: normal pulses, No calf tenderness, No clubbing, No cyanosis, No edema, No other, No palpable cord, No pitting pedal edema, No tenderness Neurological: COKE LOADER II-XII intact, nl mental status, nl speech, nl strength Skin: nl turgor Lymph: nl lymph nodes Results Result Diagram: 10/20/16 0745 10/20/16 0745 Results 24 hrs Laboratory Tests Test 10/19/16 18:05 10/19/16 23:43 10/20/16 07:45 Activated Partial Thromboplast Time 28.6 Anion Gap 19 H 14 B-Type Natriuretic Peptide 281 H Basophils # 0.1 0.1 Basophils % 0.6 0.6 Blood Urea Nitrogen 10 9 Calcium Level 9.0 8.7 Carbon Dioxide Level 26 27 Chloride Level 102 107 Creatinine 0.87 0.86 Eosinophils # 0.2 0.2 Eosinophils % 2.1 2.5 Glucose Level 101 86 Hematocrit 44.2 41.1 L Hemoglobin 15.3 14.2 INR International Normalized Ratio 0.97 Lymphocytes # 3.7 H 2.9 Lymphocytes % 37.5 30.3 Mean Corpuscular Hemoglobin 31.5 31.2 Mean Corpuscular Hemoglobin Concent 34.6 34.5 Mean Corpuscular Volume 91.1 90.3 Mean Platelet Volume 11.9 H 12.6 H Monocytes # 0.8 0.9 Monocytes % 8.0 9.6 Neutrophils # 5.1 5.4 Neutrophils % 51.5 56.7 Nucleated Red Blood Cells # 0.0 0.0 Nucleated Red Blood Cells % 0.0 0.0 Platelet Count 159 155 Potassium Level 4.3 3.9 Prothrombin Time 12.9 Prothrombin Time Ratio 1.0 Red Blood Count 4.85 4.55 L Red Cell Distribution Width 12.4 12.5 Sodium Level 143 144 Troponin I < 0.012 < 0.012 < 0.012 White Blood Count 9.9 # 9.5 Creatine Kinase 78 93 Creatine Kinase Index 0.4 0.4 Creatinine Kinase MB (Mass) 0.35 0.38 Alanine Aminotransferase (ALT/SGPT) 36 Albumin 3.4 Albumin/Globulin Ratio 1.03 Alkaline Phosphatase 56 Aspartate Amino Transf (AST/SGOT) 20 Cholesterol Level 69 L Cholesterol/HDL Ratio 2.1 Direct Bilirubin 0.00 Globulin 3.30 H HDL Cholesterol 32 Hemoglobin A1c 5.4 Indirect Bilirubin 0.5 LDL Cholesterol, Calculated 18 Thyroid Stimulating Hormone (TSH) 2.620 Total Bilirubin 0.5 Total Protein 6.7 Triglycerides Level 96 Medications Medications Current Medications Aspirin (Halfprin) 81 mg DAILY PO Last administered on 10/20/16 10:51; Admin Dose 81 MG; Start 10/20/16 at 09:00 Atenolol (Tenormin) 25 mg DAILY PO Last administered on 10/20/16 10:51; Admin Dose 25 MG; Start 10/20/16 at 09:00 Atorvastatin Calcium (Lipitor) 80 mg DAILY PO Last administered on 10/20/16 10: 51; Admin Dose 80 MG; Start 10/20/16 at 09:00 Clopidogrel Bisulfate (plaVIX) 75 mg DAILY PO Last administered on 10/20/16 10: 51; Admin Dose 75 MG; Start 10/20/16 at 09:00 Lisinopril (Zestril) 10 mg DAILY PO Last administered on 10/20/16 10:52; Admin Dose 10 MG; Start 10/20/16 at 09:00 Lorazepam (Ativan) 1 mg DAILY PO Last administered on 10/20/16 10:51; Admin Dose 1 MG; Start 10/20/16 at 09:00 Nitroglycerin (Nitroglycerin (Sl Tab) 0.4 Mg) 1 tab [id number] PRN SL CHEST PAIN ; Start 10/19/16 at 22:00 Tamsulosin HCl (Flomax) 0.4 mg QHS PO Last administered on 10/19/16 22:49; Admin Dose 0.4 MG; Start 10/19/16 at 22:36 Zolpidem Tartrate (Ambien) 5 mg QHS PRN PO INSOMNIA; Start 10/19/16 at 22:00 Acetaminophen (Tylenol Tab) 650 mg Q6H PRN PO PAIN AND OR ELEVATED TEMP; Start 10/19/16 at 22:00 Ondansetron HCl (Zofran Inj) 4 mg Q4H PRN IV NAUSEA AND/OR VOMITING; Start at 22:00 Morphine Sulfate (morphine) 2 mg Q6 PRN IV PAIN; Start 10/19/16 at 22:00 SALVADOR ANDRES MD Oct 20, 2016 13:39
[2016-10-20] MEDS: TAMSULOSIN (SR) 0.4 MG CAP PO SCH (20:45)
[2016-10-21] VITALS (10 sets, daily range): BP systolic 123–139; BP diastolic 60–69; PULSE 48–67; RESP 16–18
[2016-10-21] MEDS: CLOPIDOGREL 75 MG TAB PO SCH (09:35)
[2016-10-21] MEDS: LORAZEPAM 1 MG TAB PO SCH (09:35)
[2016-10-21] MEDS: ATORVASTATIN 80 MG TAB PO SCH (09:35)
[2016-10-21] MEDS: LISINOPRIL 10 MG TAB PO SCH (09:36)
[2016-10-21] MEDS: ATENOLOL 25 MG TAB PO SCH (09:36)
[2016-10-21] MEDS: ASPIRIN (EC) 81 MG TAB PO SCH (09:36)
--- NOTE | 2016-10-21 15:07 | DS ---
Date/Time of Note Date/Time of Note DATE: 10/21/16 TIME: 15:02 Discharge Summary Admission/Discharge Info Admit Date/Time Oct 19, 2016 at 19:31 Discharge Date/Time Final Diagnosis 1. Uncontrolled hypertension, stable, likely anxiety related 2. CAD, s/p PCI/stent, on treatment 3. Dyslipidemia: cont statin 4. BPH: cont meds Patient Condition: Stable Hx of Present Illness This is a 71-year-old male with past medical history of coronary artery disease with previous myocardial infarction with stent to LAD as well as diagonal branch , hypertension, dyslipidemia, BPH who presented to [facility] complaining of chest pain. Pt was brought to [facility] for elective PCI last month due to recurrent in-stent restenosis of mid LAD stent. Patient did have successful balloon angioplasty of mid LAD stent by Dr. Murray and was discharged in stable condition. His chest pain started today and is substernal with no radiation. He reported associated SOB. Denied N/V or diaphoresis. He was treated with aspirin 162 mg. and 1 spray of nitroglycerin by EMS with good response. ER Course: Initial BP 184/91 with HR of 60, but he remained bradycardic with HR in 50s the rest of ER stay. First trop neg and EKG with no ST-T wave abnormalities. . Hospital Course Patient was thought of having chest pain on admission, but after talking with him through welder 2nd shift, patient did not have chest pain but he came in for high blood pressure. His antihypertensives are resumed, same as what he was taking at home, blood pressure has been well controlled. It was probably anxiety related high blood pressure. No chest pain, negative troponin. Home Meds Active Scripts Aspirin* (Aspirin* EC) 81 Mg Tablet., 81 MG PO DAILY for 30 Days Prov:SOREN CABA 09/15/16 Atenolol* (Atenolol*) 25 Mg Tablet, 25 MG PO DAILY, #30 Prov:SOREN CABA 09/15/16 Lisinopril* (Lisinopril*) 10 Mg Tablet, 10 MG PO DAILY, #30 Prov:SOREN CABA 09/15/16 Reported Medications Clopidogrel Bisulfate* (Clopidogrel Bisulfate*) 75 Mg Tablet, 75 MG PO DAILY, # 30 TAB 10/19/16 Nitroglycerin* (Nitrostat*) 0.4 Mg Tab.subl, 0.4 MG SL Q5MIN Y for CHEST PAIN, BOTTLE 09/14/16 Zolpidem Tartrate* (Zolpidem Tartrate*) 5 Mg Tablet, 5 MG PO QHS Y for INSOMNIA , #30 09/14/16 Tamsulosin Hcl* (Tamsulosin Hcl*) 0.4 Mg Cap.er.24h, 0.4 MG PO DAILY, #30 09/14/16 Lorazepam* (Lorazepam*) 1 Mg Tablet, 1 MG PO DAILY, #30 09/14/16 Atorvastatin* (Atorvastatin*) 80 Mg Tablet, 80 MG PO DAILY, #30 09/14/16 Discontinued Reported Medications Ibuprofen* (Ibuprofen*) 800 Mg Tablet, 800 MG PO BID, #60 09/14/16 Simvastatin (Simvastatin) 40 Mg Tablet 08/04/10 Follow-up Plan PCP one week cardiology 2 weeks SALVADOR ANDRES MD Oct 21, 2016 15:07
== END 2016-10-21 17:36 | disposition home or self-care (01) ==
LOC: E/R 17:55 → INTOOBSV 19:31 → MS4 19:31 → OBSVTOIN 10-21 14:33 → INTOOBSV 10-21 14:33
PROVIDERS: ADMIT Internal Medicine; ATTEND Internal Medicine
DX: I10 Essential (primary) hypertension (principal); I25.10 Atherosclerotic heart disease of native coronary artery without angina pectoris; E78.5 Hyperlipidemia, unspecified; N40.0 Benign prostatic hyperplasia without lower urinary tract symptoms; Z98.61 Coronary angioplasty status
CPT/HCPCS: 36415; 71010; 80048; 80053; 80061; 82550; 82553; 83036; 83880; 84443; 84484; 85025; 85610; 85730; 87081; 93005; 99285; G0378; 99217

== ENCOUNTER 2016-10-30 21:35 | Emergency (ER) | payer MEDICARE, OTHER ==
[~2016-10-30] VITALS: Ht 172.7 cm; Wt 68.0 kg
[~2016-10-30 21:35] MED LIST changes: +CLOP75TA4 PO; -IBUP800T25 PO; -SMV40T
[2016-10-30 21:38] VITALS: Ht 172.7 cm; Wt 68.0 kg
[2016-10-30 22:39] VITALS: BP 169/97; PULSE 93; RESP 26; TEMP 98.1
[2016-10-30 22:47] LABS: ADD SCAN DIFF NO
[2016-10-30 22:48] LABS: BASOPHIL # 0.1 10^3/ul (0.0-0.1); BASOPHILS % 0.7 % (0.0-2.0); EOSINOPHILS # 0.2 10^3/ul (0.0-0.5); EOSINOPHILS % 2.1 % (0.0-7.0); HEMATOCRIT 44.1 % (42.0-52.0); HEMOGLOBIN 15.4 g/dl (14.0-18.0); LYMPHOCYTES # 3.2 10^3/ul (0.8-2.9); MEAN CORPUSCULAR HEMOGLOBIN 31.5 pg (29.0-33.0); MEAN CORPUSCULAR HGB CONC 34.9 g/dl (32.0-37.0); MEAN CORPUSCULAR VOLUME 90.2 fl (82.0-101.0); MEAN PLATELET VOLUME 11.7 fl (7.4-10.4); MONOCYTE # 0.8 10^3/ul (0.3-0.9); MONOCYTES % 9.3 % (0.0-11.0); NEUTROPHIL # 4.8 10^3/ul (1.6-7.5); NEUTROPHILS % 52.6 % (39.0-77.0); PLATELET COUNT 169 10^3/UL (140-415); RED BLOOD COUNT 4.89 10^6/ul (4.70-6.10); RED CELL DISTRIBUTION WIDTH 12.5 % (11.5-14.5)
[2016-10-30 23:00] LABS: INR 0.99; PROTIME 13.1 Sec (12.2-14.2)
[2016-10-30 23:01] LABS: PARTIAL THROMBOPLASTIN TIME 27.5 Sec (25.0-35.0)
[2016-10-30 23:08] LABS: ALBUMIN 4.3 g/dl (3.3-4.9); CHLORIDE 101 mmol/L (97-110)
[2016-10-30 23:09] LABS: POTASSIUM 3.5 mmol/L (3.5-5.1); SODIUM 141 mmol/L (135-144)
[2016-10-30 23:11] LABS: ALBUMIN/GLOBULIN RATIO 1.59; ALKALINE PHOSPHATASE 75 IU/L (42-121); ANION GAP 20 (8-16); ASPARTATE AMINO TRANSFERASE 30 IU/L (15-46); BILIRUBIN,INDIRECT 0.4 mg/dl (0-1.1); BILIRUBIN,TOTAL 0.4 mg/dl (0.2-1.3); BLOOD UREA NITROGEN 11 mg/dl (7-20); CARBON DIOXIDE 24 mmol/L (21-31); CREATININE 0.81 mg/dl (0.61-1.24)
[2016-10-30 23:12] LABS: ALANINE AMINOTRANSFERASE 39 IU/L (13-69); CALCIUM 8.9 mg/dl (8.4-10.2); GLUCOSE 103 mg/dl (70-220)
[2016-10-30 23:20] LABS: B-TYPE NATRIURETIC PEPTIDE 272 PG/ML (0-125)
[2016-10-30 23:27] LABS: TROPONIN-I < 0.012 ng/ml (0.00-0.12)
--- NOTE | 2016-10-30 23:35 | ERD ---
ER Documentation Chief Complaint Date/Time DATE: 10/30/16 TIME: 23:33 Chief Complaint states htn at home x 30 minutes ago, denies chest pain HPI 71-year-old male with a history of hypertension and coronary artery disease status post PCI presenting with complaints of uncontrolled hypertension. He states that has been elevated all day and he has waited several hours prior to coming to the ER. He denies any associated headache, vision change, dizziness, nausea, vomiting, chest pain, shortness of breath, or change in urine output. He was recently admitted to the hospital on October 19 for uncontrolled hypertension and discharged on October 21 and advised to follow-up with his PCP. He followed up with his PCP about 2 days ago and his lisinopril and atenolol were stopped and he was started on Diovan. He has been taking Diovan for the past 2 days. He is unsure why he was told to stop the atenolol. ROS All systems reviewed and are negative except as per history of present illness. Medications Home Meds Active Scripts Aspirin* (Aspirin* EC) 81 Mg Tablet.dr, 81 MG PO DAILY for 30 Days Prov:SOREN CABA 09/15/16 Atenolol* (Atenolol*) 25 Mg Tablet, 25 MG PO DAILY, #30 Prov:SOREN CABA 09/15/16 Lisinopril* (Lisinopril*) 10 Mg Tablet, 10 MG PO DAILY, #30 Prov:SOREN CABA 09/15/16 Reported Medications Clopidogrel Bisulfate* (Clopidogrel Bisulfate*) 75 Mg Tablet, 75 MG PO DAILY, # 30 TAB 10/19/16 Nitroglycerin* (Nitrostat*) 0.4 Mg Tab.subl, 0.4 MG SL Q5MIN Y for CHEST PAIN, BOTTLE 09/14/16 Zolpidem Tartrate* (Zolpidem Tartrate*) 5 Mg Tablet, 5 MG PO QHS Y for INSOMNIA , #30 09/14/16 Tamsulosin Hcl* (Tamsulosin Hcl*) 0.4 Mg Cap.er.24h, 0.4 MG PO DAILY, #30 09/14/16 Lorazepam* (Lorazepam*) 1 Mg Tablet, 1 MG PO DAILY, #30 09/14/16 Atorvastatin* (Atorvastatin*) 80 Mg Tablet, 80 MG PO DAILY, #30 09/14/16 Allergies Allergies: Coded Allergies: No Known Allergies (Verified Allergy, Mild, 10/30/16) PMhx/Soc History of Surgery: Yes (prostatectomy, PCI w/ stent) Anesthesia Reaction: No Hx Neurological Disorder: No Hx Respiratory Disorders: No Hx Cardiac Disorders: Yes (HTN, CAD, [place]) Hx Psychiatric Problems: No Hx Miscellaneous Medical Probl: Yes (Hyperlipidemia, Hep C) Hx Alcohol Use: No Hx Substance Use: No Hx Tobacco Use: Yes Smoking Status: Former smoker FmHx Family History: No diabetes Physical Exam Vitals Vital Signs Date Time Temp Pulse Resp B/P Pulse Ox O2 Delivery O2 Flow Rate FiO2 10/30/16 22:39 98.1 93 26 169/97 98 Room Air 10/30/16 22:30 98.1 92 26 205/93 98 Room Air 10/30/16 21:38 97.8 119 20 220/110 99 Physical Exam Const: Well-appearing, no distress Head: Atraumatic Eyes: Normal Conjunctiva, Florencio, EOMI ENT: Normal External Ears, Nose and Mouth. Neck: Full range of motion..~ No meningismus. Resp: Clear to auscultation bilaterally Cardio: Regular rate and rhythm, no murmurs. 2+ distal pulses. Abd: Soft, non tender, non distended. Normal bowel sounds Skin: No petechiae or rashes Back: No midline or flank tenderness Ext: No cyanosis, or edema Neur: Awake and alert and oriented 3, cranial nerves intact, strength and sensations intact in all 4 extremities Psych: Normal Mood and Affect Result Diagram: 10/30/16222910/30/162229 Results 24 hrs Laboratory Tests Test 10/30/16 22:30 Activated Partial Thromboplast Time 27.5Sec Alanine Aminotransferase (ALT/SGPT) 39IU/L Albumin 4.3g/dl Albumin/Globulin Ratio 1.59 Alkaline Phosphatase 75IU/L Anion Gap 20 Aspartate Amino Transf (AST/SGOT) 30IU/L B-Type Natriuretic Peptide 272PG/ML Basophils # 0.110^3/ul Basophils % 0.7% Blood Urea Nitrogen 11mg/dl Calcium Level 8.9mg/dl Carbon Dioxide Level 24mmol/L Chloride Level 101mmol/L Creatinine 0.81mg/dl Direct Bilirubin 0.00mg/dl Eosinophils # 0.210^3/ul Eosinophils % 2.1% Globulin 2.70g/dl Glucose Level 103mg/dl Hematocrit 44.1% Hemoglobin 15.4g/dl INR International Normalized Ratio 0.99 Indirect Bilirubin 0.4mg/dl Lymphocytes # 3.210^3/ul Lymphocytes % 35.0% Mean Corpuscular Hemoglobin 31.5pg Mean Corpuscular Hemoglobin Concent 34.9g/dl Mean Corpuscular Volume 90.2fl Mean Platelet Volume 11.7fl Monocytes # 0.810^3/ul Monocytes % 9.3% Neutrophils # 4.810^3/ul Neutrophils % 52.6% Nucleated Red Blood Cells # 0.010^3/ul Nucleated Red Blood Cells % 0.0/100WBC Platelet Count 92727^3/UL Potassium Level 3.5mmol/L Prothrombin Time 13.1Sec Prothrombin Time Ratio 1.0 Red Blood Count 4.8910^6/ul Red Cell Distribution Width 12.5% Sodium Level 141mmol/L Total Bilirubin 0.4mg/dl Total Protein 7.0g/dl Troponin I < 0.012ng/ml White Blood Count 9.010^3/ul Procedures/[facility] EMERGENT LABS AND DIAGNOSTIC STUDIES: Lab Results above were reviewed and interpreted by me. CBC and BMP are within normal limits BNP is slightly elevated, troponin is normal 12-lead EKG was interpreted by Vianey Gregg MD: Sinus tachycardia at 109 bpm with a premature complex Left anterior fascicular block No acute ST or T wave changes suggestive of acute ischemia or STEMI. Chest X-ray 1V Interpreted by me: Soft Tissue: No acute abnormalities Bones: No acute abnormalities Mediastinum/Cardiac Silhouette/Lungs: No acute abnormalities Initial Nursing notes reviewed. Previous Medical Records requested via the Electronic Health Record. EMERGENCY DEPARTMENT COURSE / MEDICAL DECISION MAKING: Patient is presenting with asymptomatic uncontrolled hypertension. I have a low suspicion for hypertensive emergency or urgency. Patient's labs were all within normal limits without evidence of endorgan injury. While here, the patient's blood pressure improved without intervention to a systolic in the 170s. I feel the patient is stable for discharge at this time with continued outpatient follow-up. I recommended he start his atenolol again in addition to the Diovan and monitor his blood pressure. He should follow-up with his primary care doctor in 2-3 days for a blood pressure check and to discuss any further changes in this medication. Return precautions were discussed. Patient was discharged in stable condition. Departure Diagnosis: Primary Impression: Asymptomatic hypertension Condition: Stable DENNIS GREGG MD Oct 30, 2016 23:35
--- NOTE | 2016-10-31 00:10 | RADRPT ---
PROCEDURE: XR Chest. CLINICAL INDICATION: Chest pain. TECHNIQUE: Single frontal chest x-ray. COMPARISON: 10/19/2016 FINDINGS: The cardiomediastinal silhouette is unremarkable. 2 mm left upper lobe nodular density.. No focal i nfiltrate is seen. There is no pleural effusion. There is no pneumothorax. The osseous structures are unremarkable. IMPRESSION: 1. No active disease. 2. 2 mm left upper lobe nodular density, unchanged. Guidelines for Management of Small Pulmonary Nodules Detected on CT Scans: A statement from the [employer] LOW-RISK PATIENT (No significant smoking history or other risk factors) < or = 4 mm : No follow-up needed > 4-6 mm : Follow-up CT at 12 mo; if unchanged, no further follow-up > 6-8 mm : Initial follow-up CT at 6-12 mo. then at 18-24 mo. if no change > 8 mm : Follow-up CT at around 3, 9, and 24 mo. Dynamic contrast-enhanced CT, PET, and/or biopsy ma y be helpful HIGH-RISK PATIENT (History of smoking or other risk factors) < or = 4 mm : Follow-up CT at 12 mo; if unchanged, no further follow-up > 4-6 mm : Initial follow-up CT at 6-12 mo. then at 18-24 mo. if no change > 6-8 mm : Initial follow-up CT at 3-6 mo then at 9-12 and 24 mo if no change > 8 mm : Same as for low-risk patient Reference: Radiology 2005, [id number]. RPTAT: HMVK .Bj Wood MD, Date Time Electronically viewed and signed by .Bj Wood MD, MD on 10/31/2016 00:09 .K/
== END 2016-10-30 23:58 | disposition home or self-care (01) ==
LOC: E/R 21:35
DX: I10 Essential (primary) hypertension (principal); I25.10 Atherosclerotic heart disease of native coronary artery without angina pectoris; R07.9 Chest pain, unspecified; Z79.82 Long term (current) use of aspirin; Z87.891 Personal history of nicotine dependence
CPT/HCPCS: 36415; 71010; 80053; 83880; 84484; 85025; 85610; 85730; 93005

== ENCOUNTER → 2016-12-29 | Outpatient (CLI) | payer MEDICARE, OTHER ==
[~2016-12-29] MED LIST changes: -ZOLP5TAB6 PO; +ZOLP5TAB7 PO
--- NOTE | 2016-12-29 08:38 | RADRPT ---
PROCEDURE: Ultrasound of the bilateral lower extremity venous system. CLINICAL INDICATION: Bilateral leg pain and swelling, deep venous thrombosis TECHNIQUE: Starr scale with and without compression, color doppler, spectral doppler of the venous system of the bilateral lower extremities was performed. Venous augmentation maneuvers were utilized . COMPARISON: No prior studies are available for comparison. FINDINGS: RIGHT: Common femoral vein: Patent. Femoral vein: Patent. Popliteal vein: Patent. Calf veins: Patent. No soft tissue abnormalities are identified. LEFT: Common femoral vein: Patent. Femoral vein: Patent. Popliteal vein: Patent. Calf veins: Patent. No soft tissue abnormalities are identified. IMPRESSION: No evidence of a deep vein thrombosis within the bilateral lower extremities. RPTAT: AADD .Dakota Tristan MD, Date Time Electronically viewed and signed by .Dakota Tristan MD, on 12/29/2016 08:37 .B/
--- NOTE | 2016-12-29 14:20 | RADRPT ---
PROCEDURE: US bilateral lower extremity arteries. CLINICAL INDICATION: Bilateral leg pain. Claudication that interferes significantly with the alexsandra ent's lifestyle. TECHNIQUE: Multiple longitudinal and transverse images of the bilateral lower extremity arteries w ere obtained with fowler scale, pulsed Doppler, and color Doppler imaging. COMPARISON: No prior studies are available for comparison. FINDINGS: Right GUEST SERVICE AIDE:148 cm/sec PSFA:145 cm/sec MSFA:111 cm/sec DSFA:05/1994 cm/sec POP:66 cm/sec CURTAIN SUPERVISOR:62 cm/sec DPA:38 cm/sec Left GUEST SERVICE AIDE:137 cm/sec PSFA:144 cm/sec MSFA:107 cm/sec DSFA:108 cm/sec POP:73 cm/sec CURTAIN SUPERVISOR:66 cm/sec DPA:50 cm/sec The right ankle-brachial index is 1.1 and the left ankle-brachial index is 1.1. There is normal triphasic flow throughout the arterial system of both lower extremities. Minimal pl aque is present in the superficial femoral arteries and calf arteries. There is no abnormal flow to suggest significant stenosis or occlusion. IMPRESSION: 1. Mild plaque formation without evidence for hemodynamically significant stenosis or occlusion. RPTAT: QQ .Siddhartha Ramirez MD, MD Date Time Electronically viewed and signed by .Siddhartha Ramirez MD, MD on 12/29/2016 14:19 .R/
== END | disposition home or self-care (01) ==
LOC: VAS 07:55
PROVIDERS: ATTEND General Practice
DX: I73.9 Peripheral vascular disease, unspecified (principal); M79.605 Pain in left leg; M79.604 Pain in right leg
CPT/HCPCS: 93922; 93970

== ENCOUNTER 2017-11-20 09:45 | Emergency (ER) | END 2017-11-20 14:16 | disposition home or self-care (01) ==